=== PATIENT | male | born 1985 | race Caucasian/White ===

== ENCOUNTER → 2019-04-14 | Outpatient (CLI) | payer OTHER | LOC: M.MRI 11:05 | DX: R60.0 Localized edema (principal); M25.561 Pain in right knee ==

== ENCOUNTER 2021-05-19 22:00 | Emergency (ER) | payer OTHER ==
[~2021-05-19] VITALS: Ht 182.9 cm; Wt 83.9 kg
[2021-05-19 23:08] LABS: HEMATOCRIT 38.4 % (42.0-52.0); MCH 30.4 pg (26.0-34.0); MCHC 33.9 g/dL (28.0-37.0); MCV 89.7 fL (80.0-100.0); MPV 7.5 fl. (7.2-11.1); NUCLEATED RBCS 0 /100WBC; PLATELET COUNT* 315 thou/uL (150-400); RBC 4.28 mil/uL (4.50-6.00); RDW-CV 13.6 % (10.5-14.5)
[2021-05-19 23:16] LABS: CALCIUM 8.5 mg/dL (8.5-10.1); CREATININE 1.1 mg/dL (0.6-1.3); POTASSIUM 3.5 mmol/L (3.5-5.1)
[2021-05-19 23:21] LABS: ALBUMIN 3.9 g/dL (3.4-5.0); TOTAL BILIRUBIN 0.6 mg/dL (<0.1-1.0); TOTAL PROTEIN 6.9 g/dL (6.4-8.2)
[2021-05-19 23:53] VITALS: BP 132/54
[2021-05-20 02:38] LABS: ABSOLUTE BASOPHILS 0.1 thou/uL (0.0-0.2); ABSOLUTE LYMPHOCYTES 6.5 thou/uL (0.8-5.3); ABSOLUTE MONOCYTES 0.8 thou/uL (0.0-1.2); ABSOLUTE NEUTROPHILS 4.6 thou/uL (1.6-8.1); ATYPICAL LYMPHS 6 %; PLATELET ESTIMATE ADEQUATE
--- NOTE | 2021-05-20 10:17 | EKG ---
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
== END 2021-05-20 00:16 | disposition home or self-care (01) ==
LOC: M.ERS 22:00
PROVIDERS: Emergency Medicine
DX: R06.00 Dyspnea, unspecified (principal); Z20.822 Contact with and (suspected) exposure to COVID-19; F43.9 Reaction to severe stress, unspecified